=== PATIENT | male | born 1940 | race Caucasian/White ===

== ENCOUNTER 2022-09-17 12:29 | Inpatient (IN) | payer MEDICARE ==
[2022-09-17] MEDS ORDERED: SODIUM CHLORIDE 0.9% 500 ML 500 ML IV STA (12:54)
[2022-09-17] MEDS ORDERED: ALBUTEROL NEBULIZED 2.5 MG/3 ML INHALATION STA (12:55)
[2022-09-17] MEDS ORDERED: IPRATROPIUM-ALBUTEROL 3 ML NEB INHALATION STA (12:55)
--- NOTE | 2022-09-17 13:07 | ED ---
General Adult HPI - General Chief complaint: Nausea/Vomiting/Diarrhea Stated complaint: Weakness Time Seen by Provider: 09/17/22 12:30 Source: patient, family, EMS, RN notes reviewed, old records reviewed Limitations: altered mental status - History of Present Illness Initial comments: 82-year-old male presenting for evaluation of weakness. Patient has had progressive weakness over the course of the past several months. Over the past 24 hours he developed a vomiting and diarrheal illness which several members of the family also infected with. There's been no measured fever. No fall. Patient did not complain of any chest pain or abdominal pain. History is obtained from the daughter who is at bedside. - Related Data Home Medications Medication Instructions Recorded Confirmed ALPRAZolam [Xanax] 0.5 mg PO BID 09/17/22 09/17/22 ARIPiprazole [Abilify] 5 mg PO DAILY 09/17/22 09/17/22 Albuterol Sulfate [Albuterol 1 - 2 puff PO RT-Q6H PRN 09/17/22 09/17/22 Sulfate Hfa] Aspirin EC [Ecotrin Low Dose] 81 mg PO HS 09/17/22 09/17/22 Budesonide/Formoterol Fumarate 2 puff INHALATION RT-BID 09/17/22 09/17/22 [Symbicort 160-4.5 Mcg Inhaler] Furosemide [Lasix] 20 mg PO DAILY 09/17/22 09/17/22 Losartan Potassium [Cozaar] 100 mg PO DAILY 09/17/22 09/17/22 Megestrol Acetate 400 mg PO HS 09/17/22 09/17/22 Rosuvastatin Calcium [Crestor] 40 mg PO HS 09/17/22 09/17/22 Sertraline [Zoloft] 100 mg PO DAILY 09/17/22 09/17/22 Allergies Allergy/AdvReac Type Severity Reaction Status Date / Time Penicillins Allergy Unknown Verified 09/17/22 13:34 Childhood Review of Systems ROS Statement: Those systems with pertinent positive or pertinent negative responses have been documented in the HPI. ROS Other: All systems not noted in ROS Statement are negative. Past Medical History Past Medical History: Unable to Obtain History of Any Multi-Drug Resistant Organisms: Unobtainable Past Surgical History: Unable to Obtain Past Psychological History: Unable to Obtain Smoking Status: Unknown if ever smoked Past Alcohol Use History: Unable to Obtain Past Drug Use History: Unable to Obtain General Exam Limitations: no limitations General appearance: in no apparent distress, lethargic Head exam: Present: atraumatic, normocephalic Eye exam: Present: normal appearance, PERRL ENT exam: Present: mucous membranes dry Neck exam: Present: normal inspection. Absent: tenderness, meningismus Respiratory exam: Present: wheezes. Absent: respiratory distress Cardiovascular Exam: Present: regular rate, normal rhythm GI/Abdominal exam: Present: soft. Absent: distended, tenderness, guarding Extremities exam: Present: normal inspection, normal capillary refill. Absent: pedal edema Neurological exam: Absent: oriented X3, motor sensory deficit Skin exam: Present: warm, dry, intact. Absent: cyanosis, diaphoretic Course Vital Signs 09/17/22 09/17/22 09/17/22 12:32 13:53 15:11 Temperature 99.1 F Pulse Rate 94 103 H 98 Respiratory 18 18 Rate Blood Pressure 140/77 149/78 O2 Sat by Pulse 92 L 96 Oximetry EKG Findings - EKG Comments: EKG Findings:: EKG: Sinus rhythm, ventricular rate 94, WA interval 193, QRS duration 81, QTC 418 tremor artifact limiting assessment Medical Decision Making - Medical Decision Making 82-year-old male with weakness, mild dyspnea and hypoxia, several episodes of vomiting diarrhea. Was pt. sent in by a medical professional or institution ([facility], [employer], urgent care, hospital, or prison...) When possible be specific @ -[No] Did you speak to anyone other than the patient for history (EMS, parent, family, police, friend...)? What history was obtained from this source @ -Patient's daughter who is at bedside Did you review nursing and triage notes (agree or disagree)? Why? @ -[I reviewed and agree with nursing and triage notes] Were old charts reviewed (outside hosp., previous admission, EMS record, old EKG, old radiological studies, urgent care reports/EKG's, prison records)? Report findings @ -No old charts were available for review Differential Diagnosis (chest pain, altered mental status, abdominal pain women, abdominal pain men, vaginal bleeding, weakness, fever, dyspnea, syncope, head ache, dizziness, GI bleed, back pain, seizure, CVA, palpatations, mental health, musculoskeletal)? @ -Differential Altered Mental Status: Hypoglycemia, DKA, hypercapnia, ETOH, overdose, CO poisoning, trauma, myxedema coma, HTN encephalopathy, infection, encephalitis, psychosis, intercranial hemorrhage, hepatic encephalopathy, meningitis, CVA, this is not meant to be an all-inclusive list EKG interpreted by me (3pts min.). @ -[As above] X-rays interpreted by me (1pt min.). @ -Chest x-ray questionable right lower lobe infiltrate. CT interpreted by me (1pt min.). @ -[None done] U/S interpreted by me (1pt. min.). @ -[None done] What testing was considered but not performed or refused? (CT, X-rays, U/S, l abs)? Why? @ -[None] What meds were considered but not given or refused? Why? @ -[None] Did you discuss the management of the patient with other professionals (professionals i.e. , PA, [employer] CLUB MANAGER, lab, RT, psych nurse, social service assistant, polysomnography technician, teacher, juvenile probation officer, case worker)? Give summary @ -[Case discussed with the admitting team Was smoking cessation discussed for >3mins.? @ -[No] Was critical care preformed (if so, how long)? @ -[No] Were there social determinants of health that impacted care today? How? (Homelessness, low income, unemployed, alcoholism, drug addiction, transportation, low edu. Level, literacy, decrease access to med. care, fdc, rehab)? @ -[No] Was there de-escalation of care discussed even if they declined (Discuss DNR or withdrawal of care, Hospice)? DNR status @ -[No] What co-morbidities impacted this encounter? (DM, HTN, Smoking, COPD, CAD, Cancer, CVA, ARF, Chemo, Hep., AIDS, mental health diagnosis, sleep apnea, morbid obesity)? @ -[Dementia, COPD] Was patient admitted / discharged? Hospital course, mention meds given and route, prescriptions, significant lab abnormalities, going to OR and other pertinent info. @ -82-year-old male with increased weakness. Chest x-ray does reveal of lower lobe infiltrate on the right. Patient also has some bilateral wheezing likely secondary to COPD. He is dehydrated. He will benefit from admission for IV fluids, IV steroids and antibiotics. Undiagnosed new problem with uncertain prognosis? @ -[No] Drug Therapy requiring intensive monitoring for toxicity (Heparin, Nitro, Insulin, Cardizem)? @ -[No] Were any procedures done? @ -[No] Diagnosis/symptom? @ -[Pneumonia, COPD, weakness] Acute, or Chronic, or Acute on Chronic? @ -Acute Uncomplicated (without systemic symptoms) or Complicated (systemic symptoms)? @ -Complicated - Lab Data Result diagrams: 09/17/22 13:14 09/17/22 13:14 Lab Results 09/17/22 09/17/22 09/17/22 Range/Units 13:14 13:14 13:14 WBC 8.0 (3.8-10.6) k/uL RBC 3.89 L (4.30-5.90) m/uL Hgb 12.5 L (13.0-17.5) gm/dL Hct 37.0 L (39.0-53.0) % MCV 95.2 (80.0-100.0) fL MCH 32.1 (25.0-35.0) pg MCHC 33.8 (31.0-37.0) g/dL RDW 15.7 H (11.5-15.5) % Plt Count 198 (150-450) k/uL MPV 8.0 Neutrophils % 88 % Lymphocytes % 6 % Monocytes % 4 % Eosinophils % 1 % Basophils % 0 % Neutrophils # 7.0 (1.3-7.7) k/uL Lymphocytes # 0.5 L (1.0-4.8) k/uL Monocytes # 0.3 (0-1.0) k/uL Eosinophils # 0.1 (0-0.7) k/uL Basophils # 0.0 (0-0.2) k/uL PT 10.6 (9.0-12.0) sec INR 1.0 (<1.2) APTT 23.7 (22.0-30.0) sec VBG pH (7.31-7.41) VBG pCO2 (37-51) mmHg VBG HCO3 (24-28) mmol/L Sodium 138 (137-145) mmol/L Potassium 3.8 (3.5-5.1) mmol/L Chloride 105 (98-107) mmol/L Carbon Dioxide 26 (22-30) mmol/L Anion Gap 7 mmol/L BUN 28 H (9-20) mg/dL Creatinine 0.72 (0.66-1.25) mg/dL Est GFR (CKD-EPI)AfAm >90 (>60 ml/min/1.73 sqM) Est GFR (CKD-EPI)NonAf 87 (>60 ml/min/1.73 sqM) Glucose 103 H (74-99) mg/dL Plasma Lactic Acid Baljit (0.7-2.0) mmol/L Calcium 7.8 L (8.4-10.2) mg/dL Magnesium 1.9 (1.6-2.3) mg/dL Total Bilirubin 0.5 (0.2-1.3) mg/dL AST 27 (17-59) U/L ALT 24 (4-49) U/L Alkaline Phosphatase 52 (38-126) U/L Total Protein 6.3 (6.3-8.2) g/dL Albumin 3.1 L (3.5-5.0) g/dL Influenza Type A (PCR) (Not Detectd) Influenza Type B (PCR) (Not Detectd) RSV (PCR) (Not Detectd) SARS-CoV-2 (PCR) (Not Detectd) 09/17/22 09/17/22 09/17/22 Range/Units 13:14 13:14 13:14 WBC (3.8-10.6) k/uL RBC (4.30-5.90) m/uL Hgb (13.0-17.5) gm/dL Hct (39.0-53.0) % MCV (80.0-100.0) fL MCH (25.0-35.0) pg MCHC (31.0-37.0) g/dL RDW (11.5-15.5) % Plt Count (150-450) k/uL MPV Neutrophils % % Lymphocytes % % Monocytes % % Eosinophils % % Basophils % % Neutrophils # (1.3-7.7) k/uL Lymphocytes # (1.0-4.8) k/uL Monocytes # (0-1.0) k/uL Eosinophils # (0-0.7) k/uL Basophils # (0-0.2) k/uL PT (9.0-12.0) sec INR (<1.2) APTT (22.0-30.0) sec VBG pH 7.44 H (7.31-7.41) VBG pCO2 38 (37-51) mmHg VBG HCO3 25 (24-28) mmol/L Sodium (137-145) mmol/L Potassium (3.5-5.1) mmol/L Chloride (98-107) mmol/L Carbon Dioxide (22-30) mmol/L Anion Gap mmol/L BUN (9-20) mg/dL Creatinine (0.66-1.25) mg/dL Est GFR (CKD-EPI)AfAm (>60 ml/min/1.73 sqM) Est GFR (CKD-EPI)NonAf (>60 ml/min/1.73 sqM) Glucose (74-99) mg/dL Plasma Lactic Acid Baljit 1.0 (0.7-2.0) mmol/L Calcium (8.4-10.2) mg/dL Magnesium (1.6-2.3) mg/dL Total Bilirubin (0.2-1.3) mg/dL AST (17-59) U/L ALT (4-49) U/L Alkaline Phosphatase (38-126) U/L Total Protein (6.3-8.2) g/dL Albumin (3.5-5.0) g/dL Influenza Type A (PCR) Not Detected (Not Detectd) Influenza Type B (PCR) Not Detected (Not Detectd) RSV (PCR) Not Detected (Not Detectd) SARS-CoV-2 (PCR) Not Detected (Not Detectd) Disposition Clinical Impression: Dehydration, Pneumonia, COPD (chronic obstructive pulmonary disease) Disposition: ADMITTED IP TO THIS [facility] Condition: Stable Is patient prescribed a controlled substance at d/c from ED?: No Referrals: None,Stated [Primary Care Provider] - 1-2 days Time of Disposition: 15:22
[2022-09-17 13:24] LABS: Basophils % (A) 0 %; Eosinophils # (A) 0.1 k/uL (0-0.7); Eosinophils % (A) 1 %; HGB 12.5 gm/dL (13.0-17.5); Lymphocytes # (A) 0.5 k/uL (1.0-4.8); Lymphocytes % (A) 6 %; MCH 32.1 pg (25.0-35.0); MCHC 33.8 g/dL (31.0-37.0); MCV 95.2 fL (80.0-100.0); Monocytes # (A) 0.3 k/uL (0-1.0); Monocytes % (A) 4 %; Neutrophils % (A) 88 %; Platelet Count 198 k/uL (150-450); RBC 3.89 m/uL (4.30-5.90); RDW 15.7 % (11.5-15.5)
[2022-09-17 13:35] LABS: Partial Thromboplastin Time 23.7 sec (22.0-30.0); Prothrombin Time 10.6 sec (9.0-12.0)
--- NOTE | 2022-09-17 13:40 | XR ---
EXAMINATION TYPE: XR chest 2V DATE OF EXAM: 09/17/2022 1:36 PM COMPARISON: None TECHNIQUE: XR chest 2V Frontal and lateral views of the chest. CLINICAL INDICATION:Male, 82 years old with history of Weakness; FINDINGS: Lungs/Pleura: Small right pleural effusion with right basilar patchy airspace opacity. Hyperinflation . No pneumothorax. Pulmonary vascularity: Unremarkable. Heart/mediastinum: Cardiomediastinal silhouette is prominent in size. Atherosclerotic calcifications are seen in the aorta. Musculoskeletal: No acute osseous pathology. IMPRESSION: COPD changes with small right pleural effusion and right basilar patchy airspace opacity which may re present atelectasis versus infiltrate.
[2022-09-17] MEDS ORDERED: ONDANSETRON 4 MG/2 ML VIAL IVP STA (13:43)
[2022-09-17 13:48] LABS: ALT 24 U/L (4-49); AST 27 U/L (17-59); African American GFR (CKD) >90 (>60 ml/min/1.73 sqM); Albumin 3.1 g/dL (3.5-5.0); Alkaline Phosphatase 52 U/L (38-126); Anion Gap 7 mmol/L; Blood Urea Nitrogen 28 mg/dL (9-20); Calcium 7.8 mg/dL (8.4-10.2); Carbon Dioxide 26 mmol/L (22-30); Chloride 105 mmol/L (98-107); Glucose 103 mg/dL (74-99); Magnesium 1.9 mg/dL (1.6-2.3); Non-African American GFR(CKD) 87 (>60 ml/min/1.73 sqM); Potassium 3.8 mmol/L (3.5-5.1); Sodium 138 mmol/L (137-145); Total Bilirubin 0.5 mg/dL (0.2-1.3); Total Protein 6.3 g/dL (6.3-8.2)
[2022-09-17 14:52] LABS: VBG PH 7.44 (7.31-7.41)
[2022-09-17] MEDS ORDERED: methylPREDNISolone SOD SUCCI 125 MG/2 ML VIAL IV STA (15:17)
[2022-09-17] MEDS ORDERED: ACETAMINOPHEN TAB 325 MG TAB PO PRN (15:17)
[2022-09-17] MEDS ORDERED: NALOXONE 0.4 MG/ML 1 ML VIAL IVP PRN (15:17)
[2022-09-17] MEDS ORDERED: IPRATROPIUM-ALBUTEROL 3 ML NEB INHALATION PRN ×2 (15:17→16:34)
[2022-09-17] MEDS ORDERED: ALBUTEROL NEBULIZED 2.5 MG/3 ML INHALATION PRN ×2 (15:30→16:42)
[2022-09-17] MEDS ORDERED: IPRATROPIUM 0.5 MG/2.5 ML NEBU INHALATION PRN ×2 (15:30→16:42)
[2022-09-17] MEDS: SODIUM CHLORIDE 0.9% 1,000 ML IV SCH (15:56)
[2022-09-17] MEDS: methylPREDNISolone SOD SUCCI 125 MG/2 ML VIAL IV SCH (15:59)
[2022-09-17] MEDS ORDERED: IPRATROPIUM 0.5 MG/2.5 ML NEBU INHALATION SCH ×2 (16:00→20:00)
[2022-09-17] MEDS ORDERED: ALBUTEROL NEBULIZED 2.5 MG/3 ML INHALATION SCH ×2 (16:00→20:00)
[2022-09-17] MEDS ORDERED: IPRATROPIUM-ALBUTEROL 3 ML NEB INHALATION SCH ×2 (16:00→20:00)
--- NOTE | 2022-09-17 16:49 | CT ---
EXAMINATION TYPE: CT brain wo con CT DLP: 1113.4 mGycm, Automated exposure control for dose reduction was used. DATE OF EXAM: 09/17/2022 4:43 PM COMPARISON: None. CLINICAL INDICATION:Male, 82 years old with history of stroke, confusion and ams TECHNIQUE: Brain: Axial CT images of the brain were obtained with coronal and sagittal reformats created and rev iewed. Contrast used: None. Oral contrast used: None. FINDINGS: Brain: Extra-axial spaces: No abnormal extra-axial fluid collections. Ventricular system: Within normal limits Cerebral parenchyma: No acute intraparenchymal hemorrhage or mass effect. The mooney-white junction is well differentiated. Scattered hypoattenuating areas are seen within the white matter. Cerebellum: Unremarkable. Mass effect: No evidence of midline shift. Intracranial vasculature: unremarkable Soft tissues: Normal. Calvarium/osseous structures: No depressed skull fracture. Paranasal sinuses and mastoid air cells: Mild scattered paranasal sinus disease. Visualized orbits: Bilateral aphakia. IMPRESSION: 1. No acute intracranial process. 2. Nonspecific white matter changes, likely secondary to chronic small vessel ischemic disease.
[2022-09-17] MEDS ORDERED: ALBUTEROL HFA INHALER INHALATION SCH (20:00)
[2022-09-17] MEDS: SYMBICORT 160-4.5 MCG INHALER INHALATION SCH (20:28)
--- NOTE | 2022-09-17 21:33 | P.CONS ---
History of Present Illness - Reason for Consult Consult date: 09/17/22 Pneumonia, sepsis Requesting physician: Nick Encinas - Chief Complaint Weakness x few days - History of Present Illness Patient is a 82-year-old male with a past medical history significant for hypertension depression valvular heart disease was brought into the ER this afternoon for evaluation of progressive weakness and the patient developing acute vomiting and diarrhea over the last 24 hours and apparently the patient is a few family member did have the same illness there is no clear history of any abdominal pain or any fever no fall patient did not complain of any chest pain or abdominal pain he did have mild cough but no sputum production with the symp toms the patient was brought into the ER on arrival to the ER the patient did spike a fever of 102 F patient was mildly hypoxic with O2 sats of 92% on room air patient did have a normal white count kidney function was normal liver exams are normal influenza RSV and COVID testing was negative patient did have a chest x-ray COPD changes with small right effusion and right basilar patchy opacity may represent atelectasis versus infiltrate CT of the brain was negative for any bleed patient was started on Rocephin and Zithromax concerning for pneumonia infectious disease was consulted for further management of antibiotic therapy most information has been obtained from reviewing the chart talking to the daughter as the patient was not able to provide any history Review of Systems Positive point has been mentioned in the HPI rest of the systems are negative Past Medical History Past Medical History: Unable to Obtain Additional Past Medical History / Comment(s): needs heart valve replacement; waiting to have procedure. Rt shoulder fractrue History of Any Multi-Drug Resistant Organisms: Unobtainable Past Surgical History: Unable to Obtain Past Psychological History: Unable to Obtain Smoking Status: Unknown if ever smoked Past Alcohol Use History: Unable to Obtain Past Drug Use History: Unable to Obtain Medications and Allergies Home Medications Medication Instructions Recorded Confirmed Type Albuterol Sulfate [Albuterol 1 - 2 puff PO RT-Q6H PRN 09/17/22 09/17/22 History Sulfate Hfa] Aspirin EC [Ecotrin Low Dose] 81 mg PO HS 09/17/22 09/17/22 History Budesonide/Formoterol Fumarate 2 puff INHALATION RT-BID 09/17/22 09/17/22 History [Symbicort 160-4.5 Mcg Inhaler] Furosemide [Lasix] 20 mg PO DAILY 09/17/22 09/17/22 History Losartan Potassium [Cozaar] 100 mg PO DAILY 09/17/22 09/17/22 History Megestrol Acetate 400 mg PO HS 09/17/22 09/17/22 History Rosuvastatin Calcium [Crestor] 40 mg PO HS 09/17/22 09/17/22 History Sertraline [Zoloft] 100 mg PO DAILY 09/17/22 09/17/22 History ALPRAZolam [Xanax] 0.5 mg PO BID PRN #4 tab 09/20/22 Rx Acetaminophen Tab [Tylenol] 650 mg PO Q4HR PRN tab 09/20/22 Rx Albuterol Nebulized [Ventolin 2.5 mg INHALATION RT-TID PRN ml 09/20/22 Rx Nebulized] Ipratropium Nebulized [Atrovent 0.5 mg INHALATION RT-QID ml 09/20/22 Rx Nebulized 0.2 MG/ML] Ipratropium Nebulized [Atrovent 0.5 mg INHALATION RT-TID PRN ml 09/20/22 Rx Nebulized 0.2 MG/ML] cefUROXime axetiL [Ceftin] 500 mg PO BID 7 Days #14 tab 09/20/22 Rx predniSONE 10 mg PO DIRECTED #30 tab 09/20/22 Rx Allergies Allergy/AdvReac Type Severity Reaction Status Date / Time Penicillins Allergy Unknown Verified 09/17/22 13:34 Childhood Physical Exam Vitals: Vital Signs Temp Pulse Resp BP Pulse Ox 09/17/22 16:11 102.4 F H 110 H 18 09/17/22 15:53 105 H 18 131/68 95 09/17/22 15:26 101 H 09/17/22 15:11 98 09/17/22 13:53 103 H 18 149/78 96 09/17/22 12:32 99.1 F 94 18 140/77 92 L Intake and Output 09/17/22 09/17/22 09/17/22 06:59 14:59 22:59 Other: Weight 83.915 kg GENERAL DESCRIPTION: Elderly male lying in bed, no distress. No tachypnea or ac cessory muscle of respiration use. HEENT: Shows Pallor , no scleral icterus. Oral mucous membrane is dry. No pharyngeal erythema or thrush NECK: Trachea central, no thyromegaly. LUNGS: Unlabored breathing. Decreased breath sounds at the base. No wheeze or crackle. HEART: S1, S2, regular rate and rhythm. No loud murmur ABDOMEN: Soft, no tenderness , guarding or rigidity, no organomegaly EXTREMITIES: No edema of feet. SKIN: No rash, no masses palpable. NEUROLOGICAL: The patient is awake, alert, oriented x3, mood and affect normal. Results CBC & Chem 7: 09/18/22 08:16 09/18/22 08:16 Labs: Abnormal Lab Results - Last 24 Hours (Table) 09/17/22 09/17/22 09/17/22 Range/Units 13:14 13:14 13:14 RBC 3.89 L (4.30-5.90) m/uL Hgb 12.5 L (13.0-17.5) gm/dL Hct 37.0 L (39.0-53.0) % RDW 15.7 H (11.5-15.5) % Lymphocytes # 0.5 L (1.0-4.8) k/uL VBG pH 7.44 H (7.31-7.41) BUN 28 H (9-20) mg/dL Glucose 103 H (74-99) mg/dL Calcium 7.8 L (8.4-10.2) mg/dL Albumin 3.1 L (3.5-5.0) g/dL Assessment and Plan (1) Pneumonia Status: Acute Code(s): J18.9 - PNEUMONIA, UNSPECIFIED ORGANISM SNOMED Code(s): 808887582 Plan: 1patient presented to hospital with generalized weakness which is multifactorial in this patient also have a acute GI symptoms of vomiting and diarrhea possible viral gastroenteritis with chest x-ray showing right lower lobe infiltrate and a possible component of pneumonia likely community-acquired less likely pneumonia or aspiration etiology 2-penicillin allergy that would limit the number of antibiotics safe to use 3-we will obtain a sputum for Gram stain and culture we will check urine for Leg ionella antigen CRP and a procalcitonin and also obtain a stool culture 4-continue with Rocephin and Zithromax 5-gentle IV fluid We will follow on clinical condition and cultures to further adjust medication if needed Thank you for this consultation we will follow the patient along with you Time with Patient: Greater than 30
[2022-09-17] MEDS: ASPIRIN 81 MG PO SCH (21:37)
[2022-09-17] MEDS: ATORVASTATIN 80 MG TAB PO SCH (21:38)
[2022-09-17] MEDS: MEGESTROL 400 MG/10 ML CUP PO SCH (21:38)
--- NOTE | 2022-09-17 21:57 | HP ---
HISTORY AND PHYSICAL CHIEF COMPLAINT: Weakness, change in mental status. HISTORY OF PRESENT ILLNESS: This is an 82-year-old gentleman with a past medical history of multiple medical problems, recently admitted at [facility]. Subsequently, the patient spent some time in the [facility]. Subsequently after returning home, the patient was found to be mostly lethargic and weak for the past several days and weeks according to the family. The patient also has some vomiting and diarrhea. The patient was taken to [facility] and admitted for further evaluation and treatment. The patient is confused. Chest x-ray showed possible pneumonia in the right lower lobe. COVID-19 is negative. PAST MEDICAL HISTORY: Reviewed, include history of recent hospitalizations and heart valve replacement. Rest of the chart and rest of the history is noted. HOME MEDICATIONS: Reviewed include Zoloft. Doses and rest of medication noted. ALLERGIES: Penicillin. FAMILY HISTORY: Could not be taken because of mental status. SOCIAL HISTORY: Could not be taken because of mental status. REVIEW OF SYSTEMS: Could not be taken because of mental status. PHYSICAL EXAMINATION: VITAL SIGNS: Pulse is 105, blood pressure 131/60, respirations 18. HEENT: Conjunctivae normal. Oral mucosa dry. NECK: No jugular venous distention. CARDIOVASCULAR: S1, S2. RESPIRATIONS: A few scattered rhonchi and crackles. ABDOMEN: Soft, nontender. LEGS: No edema. No swelling. NERVOUS SYSTEM: Diffusely weak. Tremors present. Tone is increased. SKIN: No ulcer, rash, bleeding. JOINTS: No active deforming arthropathy. LABORATORY DATA: WBC 8. Rest of the labs are noted. ASSESSMENT: 1. Possible bilateral pneumonia, right more than the left. Consider hospital-acquired pneumonia. 2. Change in mental status, metabolic encephalopathy, multifactorial. 3. Rule out Parkinson's. 4. Rule out acute stroke. 5. Hyperlipidemia. 6. Possible chronic obstructive pulmonary disease versus asthma. RECOMMENDATIONS AND DISCUSSION: This is an 82-year-old gentleman, who presented with multiple complex medical issues. We will resume the home medications. Treat the patient with broad-spectrum IV antibiotics. Obtain Pulmonary and Infectious Disease evaluations, PT/OT evaluation. CT scan has been ordered. See orders for further evaluation and prognosis extremely guarded because of multiple complex medical issues as listed above. Further recommendations to follow. MMODL / IJN: [id number] /
[2022-09-18] MEDS: methylPREDNISolone SOD SUCCI 125 MG/2 ML VIAL IV SCH ×5 (00:53→23:51)
[2022-09-18] MEDS: SODIUM CHLORIDE 0.9% 1,000 ML IV SCH ×2 (05:59→12:45)
--- NOTE | 2022-09-18 07:02 | P.CNPUL ---
History of Present Illness Consult date: 09/18/22 Requesting physician: Price Polk Reason for consult: COPD, pneumonia Chief complaint: Weakness, nausea and vomiting History of present illness: I'm seeing this patient in new consultation today 09/18/2022 for a possible COPD exacerbation. This is an 82-year-old male patient who is a poor historian, and the majority of this HPI was collected from the chart and family. Patient reportedly has history of COPD, hyperlipidemia, hypertension. Apparently the patient has become progressively weaker over the last several months. He is also developed some nausea, vomiting, diarrhea over the last 24 hours. Other family members have experienced similar symptoms. Patient was also reportedly recently [facility] and spent some time at [facility]. Patient is currently resting in bed, on 2 L nasal cannula, in no acute distress. Chest x-ray on arrival showed some COPD-like changes, small right pleural effusion, and right basilar patchy airspace opacity which may be atelectasis versus infiltrate. A brain CT without contrast showed no acute intracranial process. CBC on arrival shows a WBC count of 8, hemoglobin 12.5, hematocrit 37, platelets 198,000. ABG done on arrival shows a pH of 7.44, pCO2 38. Patient's BMP shows a sodium 138, potassium 3.8, chloride 105, serum CO2 26, BUN 28, creatinine 0.72, glucose 103. LFTs were not e levated. Patient was negative for influenza, RSV, COVID-19. She is currently receiving combination of albuterol nebulization, Symbicort inhaler, and IV Solu- Medrol. Patient is febrile and had a T-max of 102.4F. Patient is being empirically covered with azithromycin and Rocephin. There is a murmur heard over right second intercostal space and radiating up the neck. Apparently the patient has some sort of valvular dysfunction reported in his history. Vital signs are stable at this time. Review of Systems Review of systems is limited due to patient being acutely confused. Past Medical History Past Medical History: Unable to Obtain Additional Past Medical History / Comment(s): needs heart valve replacement; waiting to have procedure. Rt shoulder fractrue History of Any Multi-Drug Resistant Organisms: Unobtainable Past Surgical History: Unable to Obtain Past Anesthesia/Blood Transfusion Reactions: Unable to Obtain Past Psychological History: Unable to Obtain Smoking Status: Unknown if ever smoked Past Alcohol Use History: Unable to Obtain Past Drug Use History: Unable to Obtain Medications and Allergies Home Medications Medication Instructions Recorded Confirmed Type ALPRAZolam [Xanax] 0.5 mg PO BID 09/17/22 09/17/22 History ARIPiprazole [Abilify] 5 mg PO DAILY 09/17/22 09/17/22 History Albuterol Sulfate [Albuterol 1 - 2 puff PO RT-Q6H PRN 09/17/22 09/17/22 History Sulfate Hfa] Aspirin EC [Ecotrin Low Dose] 81 mg PO HS 09/17/22 09/17/22 History Budesonide/Formoterol Fumarate 2 puff INHALATION RT-BID 09/17/22 09/17/22 History [Symbicort 160-4.5 Mcg Inhaler] Furosemide [Lasix] 20 mg PO DAILY 09/17/22 09/17/22 History Losartan Potassium [Cozaar] 100 mg PO DAILY 09/17/22 09/17/22 History Megestrol Acetate 400 mg PO HS 09/17/22 09/17/22 History Rosuvastatin Calcium [Crestor] 40 mg PO HS 09/17/22 09/17/22 History Sertraline [Zoloft] 100 mg PO DAILY 09/17/22 09/17/22 History Allergies Allergy/AdvReac Type Severity Reaction Status Date / Time Penicillins Allergy Unknown Verified 09/17/22 13:34 Childhood Physical Exam Vitals: Vital Signs Temp Pulse Pulse Resp BP BP Pulse Ox 09/18/22 02:00 97.6 F 94 17 116/80 96 09/17/22 20:46 96 09/17/22 20:28 92 09/17/22 19:47 98.7 F 88 17 119/65 95 09/17/22 18:14 100.7 F H 88 18 125/55 96 09/17/22 16:11 102.4 F H 110 H 18 09/17/22 15:53 105 H 18 131/68 95 09/17/22 15:26 101 H 09/17/22 15:11 98 09/17/22 13:53 103 H 18 149/78 96 09/17/22 12:32 99.1 F 94 18 140/77 92 L Intake and Output 09/17/22 09/17/22 09/18/22 14:59 22:59 06:59 Output Total 1 Balance -1 Output: Urine/Stool Mix 1 Other: Voiding Method Diaper Incontinent # Voids 4 Weight 83.915 kg 83.915 kg GENERAL EXAM: Alert, pleasantly confused, 82-year-old white male, comfortable in no apparent distress. HEAD: Normocephalic and atraumatic EYES: Normal reaction of pupils, equal size. NOSE: Clear with pink turbinates. THROAT: No erythema or exudates. NECK: No masses, no JVD. CHEST: No chest wall deformity. LUNGS: Equal air entry with scattered rhonchi. no crackles, wheeze, or focal dullness. On 2 L nasal cannula. No conversational dyspnea or accessory muscle use.. CVS: S1 and S2 normal with a grade 2 systolic murmur heard best at the right second intercostal space. regular rhythm. No extra heart sounds ABDOMEN: No hepatosplenomegaly, active bowel sounds, no guarding or rigidity. SPINE: No scoliosis or deformity SKIN: No rashes CENTRAL NERVOUS SYSTEM: No focal deficits, tone is normal in all 4 extremities. Patient is mostly nonverbal and perhaps oriented to self. EXTREMITIES: There is no peripheral edema, clubbing, or cyanosis. Peripheral pulses are intact. Results - Laboratory Findings CBC and BMP: 09/17/22 13:14 09/17/22 13:14 PT/INR, D-dimer PT 10.6 sec (9.0-12.0) 09/17/22 13:14 INR 1.0 (<1.2) 09/17/22 13:14 Abnormal lab findings: Abnormal Labs 09/17/22 09/17/22 09/17/22 13:14 13:14 13:14 RBC 3.89 L Hgb 12.5 L Hct 37.0 L RDW 15.7 H Lymphocytes # 0.5 L VBG pH 7.44 H BUN 28 H Glucose 103 H Calcium 7.8 L Albumin 3.1 L - Diagnostic Findings Chest x-ray: image reviewed Assessment and Plan Assessment: Acute COPD exacerbation possibly related to community acquired pneumonia. Chest x-ray done on arrival showed COPD changes with small right pleural effusion and right basilar patchy airspace opacity which could represent atelectasis versus infiltrate Acute hypoxic respiratory failure secondary to above currently maintained on 2 L nasal cannula Acute viral gastroenteritis Systolic murmur, grade 2 heard best at the right second intercostal space Confusion, unsure of the chronicity. Nurse reports that the patient has baseline memory impairment and is debilitated, incontinent, also requiring feeding assistance. Noncontrast CT of the brain showed no acute intracranial process. Hypertension Hyperlipidemia Plan: Patient's medications, labs, chest x-ray reviewed Continue supplemental oxygen to maintain oxygen saturation 92% or greater Continue empiric antibiotic antibiotics Check pro calcitonin level Check blood and sputum culture Stool culture Urine Legionella antigen Obtain echocardiogram Continue Solu-Medrol Continue bronchodilators Continue Symbicort inhaler Neurology consulted for altered mental status Time with Patient: Greater than 30
[2022-09-18] MEDS: SYMBICORT 160-4.5 MCG INHALER INHALATION SCH ×2 (08:59→21:08)
[2022-09-18] MEDS: IPRATROPIUM 0.5 MG/2.5 ML NEBU INHALATION SCH ×4 (08:59→21:08)
[2022-09-18] MEDS: ALBUTEROL NEBULIZED 2.5 MG/3 ML INHALATION SCH ×4 (08:59→21:08)
[2022-09-18] MEDS: ARIPiprazole 5 MG TAB PO SCH (09:52)
[2022-09-18] MEDS: LOSARTAN 50 MG TAB PO SCH (09:53)
[2022-09-18] MEDS: FUROSEMIDE 20 MG TAB PO SCH (09:53)
[2022-09-18] MEDS: SERTRALINE 100 MG TAB PO SCH (09:54)
[2022-09-18 09:56] LABS: Basophils % (A) 0 %; Eosinophils % (A) 0 %; HCT 31.9 % (39.0-53.0); HGB 10.6 gm/dL (13.0-17.5); Lymphocytes # (A) 0.8 k/uL (1.0-4.8); Lymphocytes % (A) 10 %; MCH 32.2 pg (25.0-35.0); MCHC 33.3 g/dL (31.0-37.0); MCV 96.7 fL (80.0-100.0); Mean Platelet Volume 8.2; Monocytes # (A) 0.1 k/uL (0-1.0); Monocytes % (A) 2 %; Neutrophils # (A) 7.2 k/uL (1.3-7.7); Neutrophils % (A) 88 %; Platelet Count 184 k/uL (150-450); RDW 15.4 % (11.5-15.5); WBC 8.1 k/uL (3.8-10.6)
[2022-09-18 10:16] LABS: African American GFR (CKD) >90 (>60 ml/min/1.73 sqM); Anion Gap 5 mmol/L; Blood Urea Nitrogen 23 mg/dL (9-20); Calcium 7.7 mg/dL (8.4-10.2); Carbon Dioxide 27 mmol/L (22-30); Chloride 108 mmol/L (98-107); Glucose 127 mg/dL (74-99); Non-African American GFR(CKD) 87 (>60 ml/min/1.73 sqM); Potassium 3.6 mmol/L (3.5-5.1); Sodium 140 mmol/L (137-145)
[2022-09-18] MEDS: AZITHROMYCIN 500 MG TAB PO SCH (11:22)
[2022-09-18 12:59] LABS: C Reactive Protein 6.9 mg/dL (<1.0)
--- NOTE | 2022-09-18 13:22 | PN ---
PROGRESS NOTE DATE OF SERVICE: 09/18/2022 SUBJECTIVE: This 82-year-old gentleman was admitted with possible bilateral pneumonia, also had change in mental status and multiple other complications also. Infectious Disease and Pulmonary are following the patient closely. OBJECTIVE: VITAL SIGNS: Pulse is 88, blood pressure 134/66, respirations 18. CHEST: Few scattered rhonchi and crackles. ABDOMEN: Soft, nontender. NERVOUS SYSTEM: Diffusely weak. LABORATORY DATA: Hemoglobin 10.6, rest of the labs are noted. ASSESSMENT: 1. Chronic obstructive pulmonary disease acute exacerbation. 2. Bilateral pneumonia, right more the left, possible hospital-acquired pneumonia. 3. Change in mental status and acute metabolic encephalopathy, multifactorial. 4. Rule out Parkinson's. 5. Hyperlipidemia. RECOMMENDATIONS AND DISCUSSION: Recommend to continue current management, continue symptomatic treatment. Remains on broad-spectrum IV antibiotics. ID and Pulmonary input appreciated. PT OT evaluation, possible ECF rehab. Prognosis guarded. Further recommendations to follow. MMODL / IJN: [id number] /
--- NOTE | 2022-09-18 15:37 | P.PN ---
Subjective Progress Note Date: 09/18/22 Principal diagnosis: Possible pneumonia Patient is a 82-year-old male with a past medical history significant for hypertension depression valvular heart disease was brought into the ER for evaluation of progressive weakness and the patient developing acute vomiting and diarrhea over the last 24 hours before presentation to the hospital and did have evidence of pulmonary infiltrate suspicious for pneumonia on today's evaluation and that is 09/18/2022, patient is afebrile, the patient is more awake and alert and is breathing comfortably on 2 L nasal cannula the patient denies having any chest pain no worsening cough or sputum production no further vomiting or diarrhea has been reported Objective - Vital Signs Vital signs: Vital Signs Temp 98.8 F 09/18/22 08:47 Pulse 90 09/18/22 13:00 Resp 18 09/18/22 08:47 BP 134/66 09/18/22 08:00 Pulse Ox 94 L 09/18/22 08:59 FiO2 Intake & Output 09/17/22 09/18/22 09/18/22 18:59 06:59 18:59 Output Total 1 Balance -1 Weight 83.915 kg 83.915 kg Output: Urine/Stool Mix 1 Other: Voiding Method Diaper Diaper Incontinent Incontinent # Voids 4 - Exam GENERAL DESCRIPTION: An elderly male lying in bed in no distress RESPIRATORY SYSTEM: Unlabored breathing , decreased breath sounds at bases HEART: S1 S2 regular rate and rhythm , ABDOMEN: Soft , no tenderness EXTREMITIES: No edema feet - Labs CBC & Chem 7: 09/18/22 08:16 09/18/22 08:16 Labs: Abnormal Lab Results - Last 24 Hours (Table) 09/17/22 09/17/22 09/17/22 Range/Units 13:14 13:14 13:14 RBC 3.89 L (4.30-5.90) m/uL Hgb 12.5 L (13.0-17.5) gm/dL Hct 37.0 L (39.0-53.0) % RDW 15.7 H (11.5-15.5) % Lymphocytes # 0.5 L (1.0-4.8) k/uL VBG pH 7.44 H (7.31-7.41) Chloride (98-107) mmol/L BUN 28 H (9-20) mg/dL Glucose 103 H (74-99) mg/dL Calcium 7.8 L (8.4-10.2) mg/dL C-Reactive Protein (<1.0) mg/dL Albumin 3.1 L (3.5-5.0) g/dL 09/18/22 09/18/22 Range/Units 08:16 08:16 RBC 3.30 L (4.30-5.90) m/uL Hgb 10.6 L (13.0-17.5) gm/dL Hct 31.9 L (39.0-53.0) % RDW (11.5-15.5) % Lymphocytes # 0.8 L (1.0-4.8) k/uL VBG pH (7.31-7.41) Chloride 108 H (98-107) mmol/L BUN 23 H (9-20) mg/dL Glucose 127 H (74-99) mg/dL Calcium 7.7 L (8.4-10.2) mg/dL C-Reactive Protein 6.9 H (<1.0) mg/dL Albumin (3.5-5.0) g/dL Assessment and Plan (1) Pneumonia Current Visit: Yes Status: Acute Code(s): J18.9 - PNEUMONIA, UNSPECIFIED ORGANISM SNOMED Code(s): 508842556 Plan: 1patient presented to hospital with generalized weakness which is multifactorial in this patient also have a acute GI symptoms of vomiting and diarrhea possible viral gastroenteritis with chest x-ray showing right lower lobe infiltrate and a possible component of pneumonia likely community-acquired less likely pneumonia or aspiration etiology 2-penicillin allergy that would limit the number of antibiotics safe to use 3- sputum for Gram stain and culture has not been collected, urine for Legionella antigen has not been collected, CRP is elevated and a procalcitonin is pending 4-patient to continue with Rocephin and Zithromax and monitor clinical course closely Time with Patient: Less than 30
--- NOTE | 2022-09-18 16:13 | P.CNNES ---
History of Present Illness Consult date: 09/18/22 Requesting physician: Nick Encinas Reason for Consult: Parkinson's? History of Present Illness: Patient is a 82-year-old male came to the Hospital by ambulance yesterday at 12:29 PM for vomiting and diarrhea. Neurology consulted for ruling out Parkinson's disease. Patient not able to provide much history, and he is ex tremely hard of hearing. Patient's son was present, who informed that patient has developed balance issue and in the last 9 months, he has fallen about half a dozen time. At one time he was admitted to [facility] and then transferred to rehab facility for 3 weeks. He was subsequently discharged and is currently living with his sister. Last and Friday, September 12 and , he was confused, discombobulated, slow, lethargic. He was slightly better on Friday, but on Friday he started having diarrhea, started throwing up. Yesterday on Friday, he threw up again, and his oxygen saturation was dropped down to 82-85 and blood pressure was elevated 150 therefore they called the ambulance and patient was brought to the hospital. As per EMS flow sheet, he was brought because patient has been feeling sick over the last day with vomiting and diarrhea. Patient acting more lucid than normal. Patient normally is alert and oriented 2-3. Yesterday patient has been more c onfused and with weakness. Patient has history of aortic stenosis and COPD. Home oxygen saturation showed 93% on room air. EKG showed sinus rhythm, blood glucose 174. Patient unable to straighten his legs. Patient arm are rigid and held to his core and will not straighten out. His vitals at the scene was blood pressure 168/68, pulse rate 94 respiration 18 saturation 93% and blood was 174. Patient has been diagnosed with pneumonia and COPD. Neurology was consulted to rule out Parkinson's disease. On reviewing patient's medication list, it appears patient is on Abilify 5 mg per day. Apparently he has been on Abilify for last 2 years for depression after his . Patient uses walker all the time. He is generalized weak. Patient's son denies any signs of dementia. Patient's son denies any changes in the handwriting, although he writes minimal, only signs his signature. 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 CT head showed no acute intracranial process. Nonspecific white matter changes, likely secondary to chronic small vessel ischemic disease. I personally reviewed CT head and agree with the findings. Chest x-ray showed COPD changes with small right pleural effusion and right basilar edgier space opacity. EKG shows sinus rhythm. Patient denies any history of diabetes. Patient quit smoking 4 months ago. He started smoking one pack per day since he was in mid 20s and by the time he quit smoking, he was smoking up to 2 pack per day. Patient denies any alcohol use, any marijuana, or any illicit drugs. Review of Systems Constitutional: Reports fever, Denies chills Eyes: denies blurred vision, denies diplopia, denies pain Ears: bilateral: decreased hearing, deny: earache Ears, nose, mouth and throat: Denies headache, Denies sore throat Cardiovascular: Denies chest pain, Denies shortness of breath Respiratory: Reports congestion, Reports cough, Reports excessive sputum Gastrointestinal: Reports diarrhea, Reports nausea, Reports vomiting, Denies abdominal pain Musculoskeletal: Denies low back pain, Denies myalgias, Denies neck pain Musculoskeletal: right: shoulder pain Integumentary: Denies pruritus, Denies rash Neurological: Denies numbness, Denies weakness Psychiatric: Reports anxiety, Reports depression, Denies memory loss Endocrine: Reports fatigue, Denies weight change Hematologic/Lymphatic: Reports easy bleeding, Reports easy bruising Past Medical History Past Medical History: Unable to Obtain Additional Past Medical History / Comment(s): needs heart valve replacement; waiting to have procedure. Rt shoulder fractrue History of Any Multi-Drug Resistant Organisms: Unobtainable Past Surgical History: Unable to Obtain Past Anesthesia/Blood Transfusion Reactions: Unable to Obtain Past Psychological History: Unable to Obtain Smoking Status: Unknown if ever smoked Past Alcohol Use History: Unable to Obtain Past Drug Use History: Unable to Obtain Medications and Allergies Home Medications Medication Instructions Recorded Confirmed Type ALPRAZolam [Xanax] 0.5 mg PO BID 09/17/22 09/17/22 History ARIPiprazole [Abilify] 5 mg PO DAILY 09/17/22 09/17/22 History Albuterol Sulfate [Albuterol 1 - 2 puff PO RT-Q6H PRN 09/17/22 09/17/22 History Sulfate Hfa] Aspirin EC [Ecotrin Low Dose] 81 mg PO HS 09/17/22 09/17/22 History Budesonide/Formoterol Fumarate 2 puff INHALATION RT-BID 09/17/22 09/17/22 History [Symbicort 160-4.5 Mcg Inhaler] Furosemide [Lasix] 20 mg PO DAILY 09/17/22 09/17/22 History Losartan Potassium [Cozaar] 100 mg PO DAILY 09/17/22 09/17/22 History Megestrol Acetate 400 mg PO HS 09/17/22 09/17/22 History Rosuvastatin Calcium [Crestor] 40 mg PO HS 09/17/22 09/17/22 History Sertraline [Zoloft] 100 mg PO DAILY 09/17/22 09/17/22 History Allergies Allergy/AdvReac Type Severity Reaction Status Date / Time Penicillins Allergy Unknown Verified 09/17/22 13:34 Childhood Physical Examination - Vital Signs Vital Signs: Vital Signs Temp Pulse Pulse Resp BP BP Pulse Ox 09/18/22 09:15 90 09/18/22 08:59 85 94 L 09/18/22 08:47 98.8 F 88 18 95 09/18/22 08:25 16 09/18/22 08:00 98.0 F 88 18 134/66 95 09/18/22 02:00 97.6 F 94 17 116/80 96 09/17/22 20:46 96 09/17/22 20:28 92 09/17/22 19:47 98.7 F 88 17 119/65 95 09/17/22 18:14 100.7 F H 88 18 125/55 96 09/17/22 16:11 102.4 F H 110 H 18 09/17/22 15:53 105 H 18 131/68 95 09/17/22 15:26 101 H 09/17/22 15:11 98 09/17/22 13:53 103 H 18 149/78 96 09/17/22 12:32 99.1 F 94 18 140/77 92 L Intake and Output 09/17/22 09/18/22 09/18/22 22:59 06:59 14:59 Output Total 1 Balance -1 Output: Urine/Stool Mix 1 Other: Voiding Method Diaper Diaper Incontinent Incontinent # Voids 4 Weight 83.915 kg Patient is an elderly male, in no acute distress. Patient is alert awake, appears slightly encephalopathic. He has slow mentation. Patient knows his full name and his age. He could not tell the city or the name of the building although he knows he is in [place]. He could not tell the current month or the year. Patient able to point to the window. Speech and language functions are normal. Patient can name and repeat very wel l. He has difficulty with naming knuckles, although was able to name pen and eyeglasses very well. No aphasia or dysarthria. Attention, concentration and fund of knowledge is quite limited . On cranial nerve examination, pupils are equal, round and reacting to light, visual jefferson are full on confrontation, with no neglect on double simultaneous stimulation Extraocular muscles are intact with no nystagmus. Face is symmetric, tongue protrudes to the midline. Palatal elevation and sensation normal, hearing is moderately decreased and shoulder shrug normal, facial sensation normal. On muscle strength testing, there is no pronator drift and the strength is normal in arms and legs distally and proximally, except right shoulder, which is weak from recent dislocation. Strength is normal in the lower limbs. Deep tendon reflexes are symmetric 2 at the biceps, 2 brachioradialis, 2+ to 3 at the knees, plantars are possibly upgoing. Sensory to touch is equal with no neglect on double simultaneous stimulation. Cerebellar function showed no ataxia for [id number] testing. Patient is very tremulous for tlbdtb-qk-gugu testing, moderate degree. He has moderate tremors for outstretched hands. He has jppv-[id number] tremors at rest, right more than left. Patient's legs also over tremoring intermittently. Tone is at least mildly increased, with some claspknifing, and bulk of muscles normal. Gait deferred.. On general examination, there is no carotid bruit. Patient does have murmur. S1 and S2 audible. Chest is clear on consultation. Abdomen is soft nontender. No organomegaly, bowel sounds present. Peripheral pulses are present. No edema. Patient has multiple bruises. 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 Patient has been on Abilify for 2 years, which may be contributing to gait imbalance, falls and parkinsonian features. * Acute COPD exacerbation possibly related to community acquired pneumonia. * Acute viral gastroenteritis * Aortic stenosis * Depression, for 2 years since his . * Hypertension * Hyperlipidemia * Hard of hearing. Plan: * Suggest stopping Abilify, as it can produce drug-induced parkinsonism, which can cause tremors, impaired balance and falls. Treatment of underlying metabolic/infectious conditions may also help with the superimposed metabolic type tremors. * If the parkinsonian symptoms goes away after stopping Abilify, then the diagnosis is clear. However if he continues to have parkinsonian symptoms, then suggest patient follow-up with neurologist as an outpatient in 2-3 months to rule out underlying Parkinson's. * Patient may benefit from outpatient GEE scan to differentiate between idiopathic Parkinson's versus drug-induced parkinsonism. * Check B12, folate, TSH. * PT OT. * Neurology will follow clinically. Thank you for the consult. Time with Patient: Greater than 30
[2022-09-18] MEDS: MEGESTROL 400 MG/10 ML CUP PO SCH (20:57)
[2022-09-18] MEDS: ASPIRIN 81 MG PO SCH (20:57)
[2022-09-18] MEDS: ATORVASTATIN 80 MG TAB PO SCH (20:58)
[2022-09-19] MEDS: methylPREDNISolone SOD SUCCI 125 MG/2 ML VIAL IV SCH ×3 (06:22→17:06)
[2022-09-19] MEDS: LOSARTAN 50 MG TAB PO SCH (08:23)
[2022-09-19] MEDS: SERTRALINE 100 MG TAB PO SCH (08:23)
[2022-09-19] MEDS: SODIUM CHLORIDE 0.9% 1,000 ML IV SCH ×2 (08:23→10:34)
[2022-09-19] MEDS: AZITHROMYCIN 500 MG TAB PO SCH (08:24)
[2022-09-19] MEDS: ARIPiprazole 5 MG TAB PO SCH (08:24)
[2022-09-19] MEDS: FUROSEMIDE 20 MG TAB PO SCH (08:24)
[2022-09-19] MEDS: IPRATROPIUM 0.5 MG/2.5 ML NEBU INHALATION SCH ×4 (09:09→19:59)
[2022-09-19] MEDS: ALBUTEROL NEBULIZED 2.5 MG/3 ML INHALATION SCH ×4 (09:09→19:59)
[2022-09-19] MEDS: SYMBICORT 160-4.5 MCG INHALER INHALATION SCH ×2 (09:09→19:59)
--- NOTE | 2022-09-19 11:25 | CA ---
Transthoracic Echo Report Name: Negar Shabazz Age: 82 Gender: M : 1940 Exam Date: 09/18/2022 10:39 Exam Location: [place] [facility] Ht (in): 70 Wt (lb): 185 Ordering Physician: Aquilino Ashraf Attending/Referring Phys: Pheresis Specialist Viola Mireles RDCS Procedure CPT: Indications: Murmur; Evaluate LV function Cardiac Hx: Technical Quality: Fair Contrast 1: Total Dose (mL): Contrast 2: Total Dose (mL): MEASUREMENTS (Male / Female) Normal Values 2D ECHO LV Diastolic Diameter PLAX 5.2 cm 4.2 - 5.9 / 3.9 - 5.3 cm LV Systolic Diameter PLAX 3.9 cm IVS Diastolic Thickness 1.3 cm 0.6 - 1.0 / 0.6 - 0.9 cm LVPW Diastolic Thickness 1.2 cm 0.6 - 1.0 / 0.6 - 0.9 cm LV Relative Wall Thickness 0.5 RV Internal Dim ED PLAX 3.2 cm LVOT Diameter 2.2 cm LA Systolic Diameter LX 4.0 cm 3.0 - 4.0 / 2.7 - 3.8 cm LA Volume 80.1 cm??? 18 - 58 / 22 - 52 cm??? M-MODE Aortic Root Diameter MM 3.4 cm MV E Point Septal Separation 1.7 cm AV Cusp Separation MM 1.6 cm DOPPLER AV Peak Velocity 395.9 cm/s AV Peak Gradient 62.7 mmHg AV Mean Velocity 327.1 cm/s AV Mean Gradient 46.2 mmHg AV Velocity Time Integral 96.6 cm LVOT Peak Velocity 98.3 cm/s LVOT Peak Gradient 3.9 mmHg AV Area Cont Eq pk 0.9 cm??? MV Peak Velocity 232.4 cm/s MV Peak Gradient 21.6 mmHg MV Mean Velocity 122.6 cm/s MV Mean Gradient 7.6 mmHg MV Velocity Time Integral 39.6 cm MV Area PHT 3.8 cm??? Mitral E Point Velocity 161.2 cm/s Mitral A Point Velocity 150.2 cm/s Mitral E to A Ratio 1.1 MV Deceleration Time 197.9 ms MV E' Velocity 8.8 cm/s Mitral E to MV E' Ratio 18.3 TR Peak Velocity 318.5 cm/s TR Peak Gradient 40.6 mmHg Right Ventricular Systolic Press 45.5 mmHg FINDINGS Left Ventricle Left ventricular ejection fraction is estimated at 55-60 %. Left ventricular cavity size normal. Mild concentric left ventricular hypertrophy. Right Ventricle Normal right ventricular size and function. Moderate pulmonary hypertension. Right Atrium Normal right atrial size. Left Atrium Severely increased left atrial volume. Mildly increased left atrial area. Mitral Valve Moderate thickening/calcification of the anterior mitral valve leaflet. Moderate thickening/calcification of the posterior mitral valve leaflet.There is a mean gradient of 8 mmHg on MV . Moderate mitral regurgitation. Aortic Valve Trileaflet aortic valve. Aortic valve sclerosis. Severe aortic stenosis with a peak velocity 396 of m/s, peak gradient 63 mmHg, mean gradient 46 , and estimated aortic valve area of .9 cm???. Tricuspid Valve Structurally normal tricuspid valve. Mild tricuspid regurgitation. Pulmonic Valve Pulmonic valve not well visualized. Pericardium Normal pericardium. No pericardial effusion. Aorta Normal size aortic root and proximal ascending aorta. CONCLUSIONS Normal LV size and systolic function with mild concentric LVH. Mitral annular calcification and nonspecific thickening of mitral valve leaflets with moderate mitral regurgitation. Severe aortic stenosis with a mean gradient of over 40 mmHg. Mild to moderate pulmonary hypertension. No pericardial effusion Previewed by: Dr. Diaz Allen MD (Electronically Signed) Final Date: 19 September 2022 11:25
[2022-09-19 13:39] VITALS: BMI 26.5
--- NOTE | 2022-09-19 16:13 | P.PN ---
Subjective Progress Note Date: 09/19/22 Patient was seen for a follow-up. Patient is sitting comfortably in the recliner. Patient still appears confused. Sensorium appears normal. Offers no complaints. Patient's son was also present today. Objective - Vital Signs Vital signs: Vital Signs Temp 99.0 F 09/19/22 13:07 Pulse 86 09/19/22 13:07 Resp 20 09/19/22 13:07 BP 157/63 09/19/22 13:07 Pulse Ox 95 09/19/22 13:07 FiO2 Intake & Output 09/18/22 09/19/22 09/19/22 18:59 06:59 18:59 Intake Total 0 Output Total 150 520 150 Balance -150 -520 -150 Weight 83.915 kg Intake: Oral 0 Output: Urine 150 520 150 Other: Voiding Method Diaper Diaper Diaper External Catheter External Catheter - Exam Patient could not tell the month or the year. Partly he is hearing impaired. On asking again, patient said "oh shit". Speech and language functions otherwise are normal. Muscle strength is normal. Sensory equal. 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 Patient has been on Abilify for 2 years, which may be contributing to gait imbalance, falls and parkinsonian features. * Acute COPD exacerbation possibly related to community acquired pneumonia. * Acute viral gastroenteritis * Aortic stenosis * Depression, for 2 years since his . * Hypertension * Hyperlipidemia * Hard of hearing. 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 Abilify has been discontinued. Patient did receive Abilify this morning. It will take a few days to a couple weeks to show the effect of medication discontinuation. * If the parkinsonian symptoms goes away after stopping Abilify, then the diagnosis is clear. However if he continues to have parkinsonian symptoms, then suggest patient follow-up with neurologist as an outpatient in 2-3 months to rule out underlying Parkinson's. * Patient may benefit from outpatient GEE scan to differentiate between idiopathic Parkinson's versus drug-induced parkinsonism. * B12 439, folate 17.40, TSH 0.45 to. * PT OT. * Neurologically clear. Patient to follow up with neurologist as an outpatient.
--- NOTE | 2022-09-19 16:47 | P.PN ---
Subjective Progress Note Date: 09/19/22 I'm seeing this patient in new consultation today 09/18/2022 for a possible COPD exacerbation. This is an 82-year-old male patient who is a poor historian, and the majority of this HPI was collected from the chart and family. Patient reportedly has history of COPD, hyperlipidemia, hypertension. Apparently the patient has become progressively weaker over the last several months. He is also developed some nausea, vomiting, diarrhea over the last 24 hours. Other family members have experienced similar symptoms. Patient was also reportedly recently [facility] and spent some time at [facility]. Patient is currently resting in bed, on 2 L nasal cannula, in no acute distress. Chest x-ray on arrival showed some COPD-like changes, small right pleural effusion, and right basilar patchy airspace opacity which may be atelectasis versus infiltrate. A brain CT without contrast showed no acute intracranial process. CBC on arrival shows a WBC count of 8, hemoglobin 12.5, hematocrit 37, platelets 198,000. ABG done on arrival shows a pH of 7.44, pCO2 38. Patient's BMP shows a sodium 138, potassium 3.8, chloride 105, serum CO2 26, BUN 28, creatinine 0.72, glucose 103. LFTs were not elevated. Patient was negative for influenza, RSV, COVID-19. She is currently receiving combination of albuterol nebulization, Symbicort inhaler, and IV Solu-Medrol. Patient is febrile and had a T-max of 102.4F. Patient is being empirically covered with azithromycin and Rocephin. There is a murmur heard over right second intercostal space and radiating up the neck. Apparently the patient has some sort of valvular dysfunction reported in his history. Vital signs are stable at this time. The patient is seen today 09/19/2022 in follow-up on the regular medical floor. He is currently sitting up in a chair at the bedside. Awake and alert in no acute distress. Maintaining O2 saturations in the 90s on room air. Currently afebrile. 0.9 normal saline at 75 ML's per hour. Blood cultures reveal no growth to date. He is continued on DuoNeb inhalations, Symbicort, IV Solu- Medrol. Antibiotics in the form of ceftriaxone and azithromycin. Pro-calcit onin 0.21. Objective - Vital Signs Vital signs: Vital Signs Temp 99.0 F 09/19/22 13:07 Pulse 90 09/19/22 16:27 Resp 20 09/19/22 13:07 BP 157/63 09/19/22 13:07 Pulse Ox 95 09/19/22 13:07 FiO2 Intake & Output 09/18/22 09/19/22 09/19/22 18:59 06:59 18:59 Intake Total 0 Output Total 150 520 150 Balance -150 -520 -150 Weight 83.915 kg Intake: Oral 0 Output: Urine 150 520 150 Other: Voiding Method Diaper Diaper Diaper External Catheter External Catheter - Exam GENERAL EXAM: Alert, pleasantly confused, 82-year-old male, up in a chair at the bedside, on room air, comfortable in no apparent distress. HEAD: Normocephalic and atraumatic EYES: Normal reaction of pupils, equal size. NOSE: Clear with pink turbinates. THROAT: No erythema or exudates. NECK: No masses, no JVD. CHEST: No chest wall deformity. LUNGS: Equal air entry with scattered rhonchi. no crackles, wheeze, or focal dullness. No conversational dyspnea or accessory muscle use. CVS: S1 and S2 normal with a grade 2 systolic murmur heard best at the right second intercostal space. regular rhythm. No extra heart sounds ABDOMEN: No hepatosplenomegaly, active bowel sounds, no guarding or rigidity. SPINE: No scoliosis or deformity SKIN: No rashes CENTRAL NERVOUS SYSTEM: No focal deficits, tone is normal in all 4 extremities. Patient is mostly nonverbal and perhaps oriented to self. EXTREMITIES: There is no peripheral edema, clubbing, or cyanosis. Peripheral pulses are intact. - Labs CBC & Chem 7: 09/18/22 08:16 09/18/22 08:16 Labs: Abnormal Lab Results - Last 24 Hours (Table) 09/18/22 Range/Units 08:16 Procalcitonin 0.21 H (0.02-0.09) ng/mL Microbiology - Last 24 Hours (Table) 09/17/22 16:00 Blood Culture - Preliminary Blood No Growth after 24 hours 09/17/22 15:45 Blood Culture - Preliminary Blood No Growth after 24 hours Assessment and Plan Assessment: Acute COPD exacerbation possibly related to community acquired pneumonia. Chest x-ray done and showed COPD changes with small right pleural effusion and right basilar patchy airspace opacity which could represent atelectasis versus infiltrate, pro calcitonin 0.21. Currently on ceftriaxone and azithromycin Acute hypoxic respiratory failure secondary to above improved and on room air Acute viral gastroenteritis Severe aortic stenosis with a mean gradient of over 40 mmHg Confusion, unsure of the chronicity. Nurse reports that the patient has baseline memory impairment and is debilitated, incontinent, also requiring feeding assistance. Noncontrast CT of the brain showed no acute intracranial pr ocess. Hypertension Hyperlipidemia Plan: The patient was seen and evaluated Medications, echocardiogram are reviewed Continued on antibiotics Continued on bronchodilators, IV Solu-Medrol We will continue to follow I have personally seen and examined the patient, performed the documentation and the assessment and plan as written. Number of minutes spent on the visit: 10.
--- NOTE | 2022-09-19 18:21 | P.PN ---
Subjective Progress Note Date: 09/19/22 Principal diagnosis: Possible pneumonia Patient is a 82-year-old male with a past medical history significant for hypertension depression valvular heart disease was brought into the ER for evaluation of progressive weakness and the patient developing acute vomiting and diarrhea over the last 24 hours before presentation to the hospital and did have evidence of pulmonary infiltrate suspicious for pneumonia on today's evaluation and that is 09/19/2022, patient continues to be afebrile, the patient is breathing comfortably on room air, the patient denies having any chest pain no worsening cough or sputum production no further vomiting or diarrhea has been reported Objective - Vital Signs Vital signs: Vital Signs Temp 97.6 F 09/19/22 08:00 Pulse 86 09/19/22 12:49 Resp 16 09/19/22 08:00 BP 152/73 09/19/22 08:00 Pulse Ox 96 09/19/22 09:10 FiO2 Intake & Output 09/18/22 09/19/22 09/19/22 18:59 06:59 18:59 Intake Total 0 Output Total 150 520 150 Balance -150 -520 -150 Intake: Oral 0 Output: Urine 150 520 150 Other: Voiding Method Diaper Diaper Diaper External Catheter External Catheter - Exam GENERAL DESCRIPTION: An elderly male lying in bed in no distress RESPIRATORY SYSTEM: Unlabored breathing , decreased breath sounds at bases HEART: S1 S2 regular rate and rhythm , ABDOMEN: Soft , no tenderness EXTREMITIES: No edema feet - Labs CBC & Chem 7: 09/18/22 08:16 09/18/22 08:16 Labs: Abnormal Lab Results - Last 24 Hours (Table) 09/18/22 Range/Units 08:16 Procalcitonin 0.21 H (0.02-0.09) ng/mL Microbiology - Last 24 Hours (Table) 09/17/22 16:00 Blood Culture - Preliminary Blood No Growth after 24 hours 09/17/22 15:45 Blood Culture - Preliminary Blood No Growth after 24 hours Assessment and Plan (1) Pneumonia Current Visit: Yes Status: Acute Code(s): J18.9 - PNEUMONIA, UNSPECIFIED ORGANISM SNOMED Code(s): 860309938 Plan: 1patient presented to hospital with generalized weakness which is multifactorial in this patient also have a acute GI symptoms of vomiting and diarrhea possible viral gastroenteritis with chest x-ray showing right lower lobe infiltrate and a possible component of pneumonia likely community-acquired less likely pneumonia or aspiration etiology 2-penicillin allergy that would limit the number of antibiotics safe to use 3- sputum for Gram stain and culture has not been collected, urine for Legionella antigen has not been collected, CRP is elevated and a procalcitonin is mildly elevated 4-patient seemed #regular appointment and will continue with Rocephin and Zithromax , finishing therapy with oral Ceftin Time with Patient: Less than 30
--- NOTE | 2022-09-19 19:21 | CDI ---
Documentation Clarification Form Date: 09/19/2022 7:13:19 PM From: Krystyna Rapp RN CCDS Phone: [phone] Admit Date: 09/17/2022 3:18:00 PM Patient Name: Negar Shabazz Visit Number: [id number] Discharge Date: ATTENTION: The Clinical Documentation Specialists (CDI) and [facility] Coding Staff appreciate your assistance in clarifying documentation. Please respond to the clarification below the line at the bottom and electronically sign. The CDI & [facility] Coding staff will review the response and follow-up if needed. Please note: Queries are made part of the Legal Health Record. If you have any questions, please contact the author of this message via ITS. Dr. Nick Encinas A coccyx stage 2 pressure ulcer is documented by Nursing 09/18, pressure injury assessment. Based on this information and the findings below, is there an additional diagnosis that is clinically appropriate for this patient? History/Risk Factors: 82-year-old male presents to the ED from [facility] for being lethargic and weak for the past several days. The patient is confused. Medical History: Unable to obtain 09/17, H&P. Clinical Indicators: Location: Coccyx Wound description: Stage 2, redness with small open area Treatment: Zinc paste, Absorbent under pad check hourly, Turn Q2H, Incontinence care, Is there an additional diagnosis that is clinically appropriate for this patient? [ ] Coccyx Pressure Ulcer Stage 2 [ ] Other condition, please specify [ ] Unable to determine Clinical Definitions: Stage 1 Pressure Ulcer: intact skin, non-blanching redness of local area Stage 2 Pressure Ulcer: Partial thickness, loss of dermis, pink wound bed Stage 3 Pressure Ulcer: Full thickness tissue loss Stage 4 Pressure Ulcer: Full thickness tissue loss with exposed bone, tendon, or muscle. Unstageable pressure ulcer: Full thickness tissue loss in which the base of the ulcer is covered by slough (yellow, nevarez, mooney, green or brown) and/or eschar (nevarez, brown or black) in the wound bed. (Template Last Revised: August 2020) Coccyx Pressure Ulcer Stage 2 MTDD
[2022-09-19] MEDS: ATORVASTATIN 80 MG TAB PO SCH (19:45)
[2022-09-19] MEDS: ASPIRIN 81 MG PO SCH (19:45)
[2022-09-19] MEDS: MEGESTROL 400 MG/10 ML CUP PO SCH (19:45)
[2022-09-19] MEDS ORDERED: ALPRAZolam 0.25 MG TAB PO PRN (21:13)
[2022-09-20] MEDS: methylPREDNISolone SOD SUCCI 125 MG/2 ML VIAL IV SCH ×3 (00:37→13:06)
--- NOTE | 2022-09-20 01:01 | PN ---
PROGRESS NOTE DATE OF SERVICE: 09/19/2022 SUBJECTIVE: This is an 82-year-old gentleman who was admitted with COPD exacerbation, also had possible bilateral pneumonia. The patient still continue to be confused. PT, OT evaluated the patient. No chest pain, no palpitations. OBJECTIVE: VITAL SIGNS: Pulse is 85, blood pressure 150/70, and respirations 16. CHEST: Few scattered rhonchi. ABDOMEN: Soft. NERVOUS SYSTEM: Diffusely weak. LABORATORY DATA: Reviewed, hemoglobin 10.6. ASSESSMENT: 1. Chronic obstructive pulmonary disease acute exacerbation. 2. Bilateral pneumonia, right more than left with possible hospital-acquired pneumonia. 3. Change in mental status, acute metabolic encephalopathy, multifactorial. 4. Rule out Parkinson's. 5. Hyperlipidemia. RECOMMENDATIONS: Recommended to continue current medications and continue symptomatic treatment, antibiotics. Repeat labs. Neurology has seen the patient for possible ECF rehab. Further recommendations to follow. Abilify has been recommended to be stopped by Dr. Whipple for possible drug-induced Parkinson's. MMODL / IJN: [id number] /
[2022-09-20 04:20] LABS: Mycoplasma IgG Antibody (EIA) 2.64 INDEX (<=0.90); Mycoplasma IgM Antibody 0.17 INDEX (<=0.90)
--- NOTE | 2022-09-20 07:31 | XR ---
EXAMINATION TYPE: XR chest 1V portable DATE OF EXAM: 09/20/2022 6:54 AM COMPARISON: Chest radiographs from 09/17/22 TECHNIQUE: XR chest 1V portable Portable AP radiograph of the chest. CLINICAL INDICATION:Male, 82 years old with history of COPD; FINDINGS: Lungs/Pleura: There is flattening of the diaphragm with increased lucency of the lungs. Small bilater al pleural effusions with scattered patchy infiltrates within the left mid lung and right lower lung. Pulmonary vascularity: Unremarkable. Heart/mediastinum: Cardiomediastinal silhouette is unremarkable. Atherosclerotic calcifications are seen in the aorta. Musculoskeletal: Subacute to remote appearing minimally displaced transverse fracture of the right pr oximal humerus neck with surrounding callus formation and sclerosis. Fracture line is still present. IMPRESSION: 1. COPD changes with small bilateral pleural effusions with patchy infiltrates within the left midlu ng and right lower lung 2. Subacute to remote-appearing minimally displaced fracture of the right proximal humerus neck. Fra cture line is still present.
[2022-09-20] MEDS: LOSARTAN 50 MG TAB PO SCH (08:17)
[2022-09-20] MEDS: AZITHROMYCIN 500 MG TAB PO SCH (08:17)
[2022-09-20] MEDS: FUROSEMIDE 20 MG TAB PO SCH (08:18)
[2022-09-20] MEDS: SERTRALINE 100 MG TAB PO SCH (08:18)
[2022-09-20] MEDS: SYMBICORT 160-4.5 MCG INHALER INHALATION SCH (09:25)
[2022-09-20] MEDS: ALBUTEROL NEBULIZED 2.5 MG/3 ML INHALATION SCH ×2 (09:25→12:11)
[2022-09-20] MEDS: IPRATROPIUM 0.5 MG/2.5 ML NEBU INHALATION SCH ×2 (09:25→12:11)
[2022-09-20 10:43] VITALS: RESP 18
--- NOTE | 2022-09-20 12:28 | FL ---
Modified barium swallow. Consistencies administered: Thin, pudding, and cracker barium consistencies. Findings: No tracheal aspiration or laryngeal penetration identified. Delayed swallow with prominent vallecular retention and premature spill with all consistencies. Fluoro time: 3 minutes 24 seconds No images were sent to PACS. Please see speech pathology report.
--- NOTE | 2022-09-20 13:21 | P.DS ---
Providers Date of admission: 09/17/22 15:18 Expected date of discharge: 09/20/22 Attending physician: Nick Encinas Consults: 09/17/22 15:23 Consult Physician Stat Consulting Provider: Patsy Toney Consult Reason/Comments: COPD/PNA Do you want consulting provider notified?: Yes 09/17/22 16:33 Consult Physician Routine Consulting Provider: Dante Willis Consult Reason/Comments: parkinson's? Do you want consulting provider notified?: Yes Consult Physician Routine Consulting Provider: Danny Guerar Consult Reason/Comments: pneumonia, sepsis Do you want consulting provider notified?: Yes 09/17/22 16:34 Consult Physician Routine Consulting Provider: Patsy Toney Consult Reason/Comments: copd Do you want consulting provider notified?: Yes Primary care physician: Stated None Hospital Course: Final diagnosis Chronic obstructive pulmonary disease, acute exacerbation Bilateral pneumonia, right more than left with possible hospital-acquired pneumonia Change in mental status, acute metabolic encephalopathy, multifactorial Possible Parkinson's to follow-up with neurology outpatient hyperlipidemia Stage II pressure ulcer to the coccyx, present on admission Discharge disposition Patient is being discharged in a stable condition with guarded prognosis to [facility]. Patient will follow-up with his primary care provider in the outpatient setting upon discharge. Patient is to continue with oral Ceftin twice daily for the next one week and also recommended close outpatient follow-up with neurology in the outpatient setting as scheduled. Total time taken is greater than 35 minutes. Hospital course This is a 82-year-old male who was recently admitted with increased confusion and altered mental status along with COPD exacerbation along with bilateral pneumonia and was being closely monitored. Multiple medical consultations including pulmonary and infectious disease following had been maintained on antibiotics. Patient was having some cough and congestion and will continue on a prednisone taper along with breathing treatments as well as highly recommending aspiration precautions with head of the bed elevated 30-45 at all times and dysphagia ground diet with no straws as mentioned below. Patient was on Abilify which has been discontinued and neurology evaluated the patient recommending outpatient follow-up to discuss further about other medication choices including Sinemet with the neurologist. Currently no reports of chest pain, shortness of breath, or palpitations. Patient is afebrile. No reports of nausea or vomiting and patient is tolerating diet. Patient will be going to [facility] today. Guarded prognosis and high risk for readmissions. Physical exam: Gen: This is a 82-year-old male who is awake, alert and oriented 2, confused at times, well-developed, well-nourished HEENT: Head is atraumatic, normocephalic. Pupils equal, round. Sclerae is anicteric. NECK: Supple. No JVD. No lymphadenopathy. No thyromegaly. LUNGS: Diminished breath sounds bilaterally with no wheezing and some scattered rhonchi noted.. No intercostal retractions. HEART: S1, S2 are muffled ABDOMEN: Soft. Bowel sounds are present. No masses. No tenderness. EXTREMITIES: No pedal edema. No calf tenderness. NEUROLOGICAL: Patient is awake, alert and oriented x2. Cranial nerves 2 through 12 are grossly intact. Diffusely weak Please refer to medication reconciliation sheet for a list of medications. The impression and plan of care has been dictated by Elizabeth Heredia, Nurse Practitioner as directed. Dr. Huang MD I have performed a history and examination and MDM of this patient, discussed the same with the dictator, and agree with the dictator's assessment and plan as written ,documented as a scribe. Based on total visit time, I have performed more than 50% of the visit. Patient Condition at Discharge: Stable Plan - Discharge Summary Discharge Rx Participant: No New Discharge Prescriptions: New Ipratropium Nebulized [Atrovent Nebulized 0.2 MG/ML] 0.5 mg INHALATION RT-QID ml Albuterol Nebulized [Ventolin Nebulized] 2.5 mg INHALATION RT-TID PRN ml PRN Reason: Shortness Of Breath Or Wheezing predniSONE 10 mg PO DIRECTED #30 tab Ipratropium Nebulized [Atrovent Nebulized 0.2 MG/ML] 0.5 mg INHALATION RT-TID PRN ml PRN Reason: Shortness Of Breath Or Wheezing cefUROXime axetiL [Ceftin] 500 mg PO BID 7 Days #14 tab Acetaminophen Tab [Tylenol] 650 mg PO Q4HR PRN tab PRN Reason: Mild Pain Or Fever > 100.5 Continue Furosemide [Lasix] 20 mg PO DAILY Aspirin EC [Ecotrin Low Dose] 81 mg PO HS Sertraline [Zoloft] 100 mg PO DAILY Rosuvastatin Calcium [Crestor] 40 mg PO HS Losartan Potassium [Cozaar] 100 mg PO DAILY Albuterol Sulfate [Albuterol Sulfate Hfa] 1 - 2 puff PO RT-Q6H PRN PRN Reason: Shortness Of Breath Megestrol Acetate 400 mg PO HS Budesonide/Formoterol Fumarate [Symbicort 160-4.5 Mcg Inhaler] 2 puff INHALATION RT-BID Changed ALPRAZolam [Xanax] 0.5 mg PO BID PRN #4 tab PRN Reason: Anxiety Discontinued ARIPiprazole [Abilify] 5 mg PO DAILY Discharge Medication List Albuterol Sulfate [Albuterol Sulfate Hfa] 1 - 2 puff PO RT-Q6H PRN 09/17/22 [History] Aspirin EC [Ecotrin Low Dose] 81 mg PO HS 09/17/22 [History] Budesonide/Formoterol Fumarate [Symbicort 160-4.5 Mcg Inhaler] 2 puff INHALATION RT-BID 09/17/22 [History] Furosemide [Lasix] 20 mg PO DAILY 09/17/22 [History] Losartan Potassium [Cozaar] 100 mg PO DAILY 09/17/22 [History] Megestrol Acetate 400 mg PO HS 09/17/22 [History] Rosuvastatin Calcium [Crestor] 40 mg PO HS 09/17/22 [History] Sertraline [Zoloft] 100 mg PO DAILY 09/17/22 [History] ALPRAZolam [Xanax] 0.5 mg PO BID PRN #4 tab 09/20/22 [Rx] Acetaminophen Tab [Tylenol] 650 mg PO Q4HR PRN tab 09/20/22 [Rx] Albuterol Nebulized [Ventolin Nebulized] 2.5 mg INHALATION RT-TID PRN ml 09/20/22 [Rx] Ipratropium Nebulized [Atrovent Nebulized 0.2 MG/ML] 0.5 mg INHALATION RT-QID ml 09/20/22 [Rx] Ipratropium Nebulized [Atrovent Nebulized 0.2 MG/ML] 0.5 mg INHALATION RT-TID PRN ml 09/20/22 [Rx] cefUROXime axetiL [Ceftin] 500 mg PO BID 7 Days #14 tab 09/20/22 [Rx] predniSONE 10 mg PO DIRECTED #30 tab 04/07/23 [Rx] Follow up Appointment(s)/Referral(s): Patsy Toney MD [STAFF PHYSICIAN] - 1 Week Marjorie Pressley MD [Medical Doctor] - 1 Week None,Stated [Primary Care Provider] - 1-2 days Activity/Diet/Wound Care/Special Instructions: Patient is going to [facility] as tolerated Recommend continue taking antibiotics twice daily for 1 week Recommend continue with dysphagia ground diet with medications whole in applesauce and thin liquids with no straws Recommend aspiration precautions with supervision with meals and head of the bed elevated 30-45 at all times Recommend neurology follow-up outpatient Discharge Disposition: TRANSFER TO SNF/ECF
--- NOTE | 2022-09-20 13:48 | P.PN ---
Subjective Progress Note Date: 09/20/22 I'm seeing this patient in new consultation today 09/18/2022 for a possible COPD exacerbation. This is an 82-year-old male patient who is a poor historian, and the majority of this HPI was collected from the chart and family. Patient reportedly has history of COPD, hyperlipidemia, hypertension. Apparently the patient has become progressively weaker over the last several months. He is also developed some nausea, vomiting, diarrhea over the last 24 hours. Other family members have experienced similar symptoms. Patient was also reportedly recently [facility] and spent some time at [facility]. Patient is currently resting in bed, on 2 L nasal cannula, in no acute distress. Chest x-ray on arrival showed some COPD-like changes, small right pleural effusion, and right basilar patchy airspace opacity which may be atelectasis versus infiltrate. A brain CT without contrast showed no acute intracranial process. CBC on arrival shows a WBC count of 8, hemoglobin 12.5, hematocrit 37, platelets 198,000. ABG done on arrival shows a pH of 7.44, pCO2 38. Patient's BMP shows a sodium 138, potassium 3.8, chloride 105, serum CO2 26, BUN 28, creatinine 0.72, glucose 103. LFTs were not elevated. Patient was negative for influenza, RSV, COVID-19. She is currently receiving combination of albuterol nebulization, Symbicort inhaler, and IV Solu-Medrol. Patient is febrile and had a T-max of 102.4F. Patient is being empirically covered with azithromycin and Rocephin. There is a murmur heard over right second intercostal space and radiating up the neck. Apparently the patient has some sort of valvular dysfunction reported in his history. Vital signs are stable at this time. The patient is seen today 09/19/2022 in follow-up on the regular medical floor. He is currently sitting up in a chair at the bedside. Awake and alert in no acute distress. Maintaining O2 saturations in the 90s on room air. Currently afebrile. 0.9 normal saline at 75 ML's per hour. Blood cultures reveal no growth to date. He is continued on DuoNeb inhalations, Symbicort, IV Solu- Medrol. Antibiotics in the form of ceftriaxone and azithromycin. Pro-calcit onin 0.21. The patient is seen today 09/20/2022 in follow-up on the regular medical floor. He is currently resting comfortably in bed. Awake and alert in no acute distress. Chest x-ray continues to show evidence of COPD with consistent bilateral effusions/patchy infiltrates in the left midlung and right lower lobe. Barium swallow did not reveal evidence of aspiration. He is maintaining good O2 saturations in the 90s on room air. Blood cultures revealed no growth. CoVID screen negative Objective - Vital Signs Vital signs: Vital Signs Temp 97.9 F 09/20/22 07:46 Pulse 96 09/20/22 12:26 Resp 18 09/20/22 07:46 BP 154/84 09/20/22 12:26 Pulse Ox 92 L 09/20/22 09:28 FiO2 Intake & Output 09/19/22 09/20/22 09/20/22 18:59 06:59 18:59 Intake Total 236 Output Total 600 Balance -364 Weight 83.915 kg Intake: Oral 236 Output: Urine 600 Other: Voiding Method Diaper Diaper Incontinent External Catheter External Catheter # Voids 2 1 - Exam GENERAL EXAM: Alert, pleasantly confused, 82-year-old male, resting in bed, on room air, comfortable in no apparent distress. HEAD: Normocephalic and atraumatic EYES: Normal reaction of pupils, equal size. NOSE: Clear with pink turbinates. THROAT: No erythema or exudates. NECK: No masses, no JVD. CHEST: No chest wall deformity. LUNGS: Equal air entry with scattered rhonchi. no crackles, wheeze, or focal dullness. No conversational dyspnea or accessory muscle use. CVS: S1 and S2 normal with a grade 2 systolic murmur heard best at the right second intercostal space. regular rhythm. No extra heart sounds ABDOMEN: No hepatosplenomegaly, active bowel sounds, no guarding or rigidity. SPINE: No scoliosis or deformity SKIN: No rashes CENTRAL NERVOUS SYSTEM: No focal deficits, tone is normal in all 4 extremities. Patient is mostly nonverbal and perhaps oriented to self. EXTREMITIES: There is no peripheral edema, clubbing, or cyanosis. Peripheral pulses are intact. - Labs CBC & Chem 7: 09/18/22 08:16 09/18/22 08:16 Labs: Abnormal Lab Results - Last 24 Hours (Table) 09/17/22 Range/Units 18:21 Mycoplasma pneumon IgG 2.64 H (<=0.90) INDEX Microbiology - Last 24 Hours (Table) 09/17/22 16:00 Blood Culture - Preliminary Blood No Growth after 48 hours 09/17/22 15:45 Blood Culture - Preliminary Blood No Growth after 48 hours Assessment and Plan Assessment: Acute COPD exacerbation possibly related to community acquired pneumonia. Chest x-ray done and showed COPD changes with small right pleural effusion and right basilar patchy airspace opacity which could represent atelectasis versus infiltrate, pro calcitonin 0.21. Currently on ceftriaxone and completed azithromycin Acute hypoxic respiratory failure secondary to above improved and on room air Acute viral gastroenteritis Severe aortic stenosis with a mean gradient of over 40 mmHg Confusion, unsure of the chronicity. Nurse reports that the patient has baseline memory impairment and is debilitated, incontinent, also requiring feeding assistance. Noncontrast CT of the brain showed no acute intracranial process. Hypertension Hyperlipidemia Plan: The patient was seen and evaluated Chest x-ray, barium swallow, medications reviewed No clear evidence of aspiration Cleared for discharge from the pulmonary standpoint Complete a course of antibiotics Complete a prednisone taper Continue bronchodilators Plan is for subacute rehabilitation I have personally seen and examined the patient, performed the documentation and the assessment and plan as written. Number of minutes spent on the visit: 10.
[2022-09-20 15:23] VITALS: BP 139/84; PULSE 92; TEMP 97.7
--- NOTE | 2022-09-20 18:30 | P.PN ---
Subjective Progress Note Date: 09/20/22 Principal diagnosis: Possible pneumonia Patient is a 82-year-old male with a past medical history significant for hypertension depression valvular heart disease was brought into the ER for evaluation of progressive weakness and the patient developing acute vomiting and diarrhea over the last 24 hours before presentation to the hospital and did have evidence of pulmonary infiltrate suspicious for pneumonia on today's evaluation and that is 09/20/2022, patient remains to be afebrile, the patient is breathing comfortably on room air, the patient denies having any chest pain cough has decreased in intensity mostly dry in nature no nausea vomiting or diarrhea has been reported Objective - Vital Signs Vital signs: Vital Signs Temp 97.9 F 09/20/22 07:46 Pulse 96 09/20/22 12:26 Resp 18 09/20/22 07:46 BP 154/84 09/20/22 12:26 Pulse Ox 92 L 09/20/22 09:28 FiO2 Intake & Output 09/19/22 09/20/22 09/20/22 18:59 06:59 18:59 Intake Total 236 Output Total 600 Balance -364 Weight 83.915 kg Intake: Oral 236 Output: Urine 600 Other: Voiding Method Diaper Diaper Incontinent External Catheter External Catheter # Voids 2 1 - Exam GENERAL DESCRIPTION: An elderly male lying in bed in no distress RESPIRATORY SYSTEM: Unlabored breathing , decreased breath sounds at bases HEART: S1 S2 regular rate and rhythm , ABDOMEN: Soft , no tenderness EXTREMITIES: No edema feet - Labs CBC & Chem 7: 09/18/22 08:16 09/18/22 08:16 Labs: Abnormal Lab Results - Last 24 Hours (Table) 09/17/22 Range/Units 18:21 Mycoplasma pneumon IgG 2.64 H (<=0.90) INDEX Microbiology - Last 24 Hours (Table) 09/17/22 16:00 Blood Culture - Preliminary Blood No Growth after 48 hours 09/17/22 15:45 Blood Culture - Preliminary Blood No Growth after 48 hours Assessment and Plan (1) Pneumonia Status: Acute Code(s): J18.9 - PNEUMONIA, UNSPECIFIED ORGANISM SNOMED Code(s): 844637866 Plan: 1patient presented to hospital with generalized weakness which is multifactorial in this patient also have a acute GI symptoms of vomiting and diarrhea possible viral gastroenteritis with chest x-ray showing right lower lobe infiltrate and a possible component of pneumonia likely community-acquired less likely pneumonia or aspiration etiology 2-penicillin allergy that would limit the number of antibiotics safe to use 3- sputum for Gram stain and culture has not been collected, urine for Legionella antigen has not been collected, CRP is elevated and a procalcitonin is mildly elevated 4-patient seemed to have shown clinical improvement with Rocephin and Zithromax, plan is to finish therapy with a short course of Ceftin Time with Patient: Less than 30
== END 2022-09-20 15:15 | DRG 193 ==
LOC: EC 12:29 → 4SSUR 15:18
PROVIDERS: ADMIT Hospitalist; ATTEND Hospitalist
DX: J18.8 Other pneumonia, unspecified organism (principal); G93.41 Metabolic encephalopathy; J96.01 Acute respiratory failure with hypoxia; J44.1 Chronic obstructive pulmonary disease with (acute) exacerbation; J44.0 Chronic obstructive pulmonary disease with (acute) lower respiratory infection; G21.19 Other drug induced secondary parkinsonism; Z20.822 Contact with and (suspected) exposure to COVID-19; A08.4 Viral intestinal infection, unspecified; I10 Essential (primary) hypertension; E78.5 Hyperlipidemia, unspecified; H91.90 Unspecified hearing loss, unspecified ear; L89.152 Pressure ulcer of sacral region, stage 2; I08.1 Rheumatic disorders of both mitral and tricuspid valves; I27.29 Other secondary pulmonary hypertension; R53.1 Weakness; E86.0 Dehydration; F17.210 Nicotine dependence, cigarettes, uncomplicated; Z79.51 Long term (current) use of inhaled steroids; Z79.899 Other long term (current) drug therapy; Z95.2 Presence of prosthetic heart valve; Z88.0 Allergy status to penicillin; Y95 Nosocomial condition
CPT/HCPCS: 36415; 70450; 71045; 71046; 74230; 80048; 80053; 82607; 82746; 82803; 83605; 83735; 84145; 84443; 85025; 85610; 85730; 86140; 86738; 87040; 87449; 87635; 87636; 93005; 93306; 94640; 94760; 96361; 96365; 96375; 99285